=== PATIENT | female | born 1960 | race Caucasian/White ===

== ENCOUNTER → 2020-08-12 | Outpatient (CLI) | payer OTHER | LOC: CT 14:00 | DX: R59.0 Localized enlarged lymph nodes (principal) | CPT/HCPCS: 70491; Q9963 ==

== ENCOUNTER 2021-04-19 12:20 | Emergency (ER) | payer OTHER ==
[2021-04-19] MEDS ORDERED: CEPHALEXIN500 M1 PO (13:13)
== END 2021-04-19 13:24 | disposition home or self-care (01) ==
LOC: ER1 12:20
DX: R59.0 Localized enlarged lymph nodes (principal)
CPT/HCPCS: 99283